=== PATIENT | male | born 1970 | race Caucasian/White ===

== ENCOUNTER 2016-10-16 10:51 | Emergency (ER) | payer MEDICAID, OTHER ==
[~2016-10-16] VITALS: Ht 188 cm; Wt 85.0 kg
[2016-10-16 11:23] VITALS: BP 117/73
== END 2016-10-16 11:24 | disposition home or self-care (01) ==
LOC: ED 10:54
DX: L03.211 Cellulitis of face (principal); K02.9 Dental caries, unspecified; F17.210 Nicotine dependence, cigarettes, uncomplicated
CPT/HCPCS: 99282; 99283

== ENCOUNTER 2016-12-01 11:32 | Emergency (ER) | payer OTHER ==
[~2016-12-01] VITALS: Ht 188 cm; Wt 84.3 kg
[~2016-12-01 11:32] MED LIST: ACHYD1T PO; CLIN-79 PO; NO HOME MEDICATIONS; TRM50T PO
--- OUTSIDE RECORDS SUMMARY | 2016-12-01 11:36 | XMS REPORT | Continuity of Care Document ---
Author Author [facility] Address Unknown Phone Unavailable Care Team Providers Care Electrical Solderer Name Role Phone FRIEND, NASH Magana DO PCP [phone] Insurance Providers Payer Name Policy Number Subscriber Name Relationship Self Pay Marie Montaño 19 Self / Same As Patient Advance Directives Directive Response Recorded Date/Time Advanced Directives No 10/16/16 11:00am Chief Complaint and Reason for Visit Chief Complaint Dental Complaint Reason for Visit Cellulitis of cheek Dental caries Problems Active Problems Medical Problem Onset Date Status Cellulitis Unknown Resolved Cellulitis of cheek Unknown Acute Dental caries Unknown Acute Laceration of finger ~12/12/2014 Acute Strain of back muscle ~02/05/2014 Resolved Swelling, cheek Unknown Resolved Medications Current Home Medications Medication Dose Units Route Directions Days/Qty Instructions Start Date No Home Medications 0 As Directed 02/05/14 Clindamycin Hcl 300 Mg 300 Mg ORAL Three Times A Day 30 10/16/16 Past Home Medications Medication Directions Ordered Status Acetaminophen/Hydrocodone Bitart 1 Ea Tab, 1 Tab Oral Every 6 Hours as needed for Pain 07/15/14 Discontinued Tramadol Hcl (Ultram) 50 Mg Tablet, 1-2 Tab Oral Every 6 Hours as needed for Pain 12/12/14 Discontinued Social History Query Response Start Date Stop Date Smoking Status Current every day smoker Hospital Discharge Instructions No hospital discharge instructions. Plan of Care Discharge Date 10/16/16 11:24am Disposition 01 HOME OR SELF-CARE Condition at Discharge Stable Instructions/Education Provided Clindamycin (Systemic) Cellulitis (Skin Infection), Adult (DC) Prescriptions See Medication Section Referrals FRIEND,NASH N DO - Additional Instructions/Education Follow up with the primary care, dentist, or ER if worsening of facial swelling. Take the antibiotic as directed. Continue ibuprofen 800mg three times daily for inflammation and pain. I encourage you to see a dentist for oral care. Some of your test results may not be complete prior to your leaving the Emergency Department. The Emergency Department is not authorized to give test results over the phone. Please contact the doctor's office listed in this packet of information for your final results. Follow up with your primary care physician or return to the Emergency Department for worsening or worrisome symptoms. * Emergency Department phone number: [phone], x [phone]* MEDICAL RECORD If you need copies of your X-rays, call [phone]. If you need copies of your medical record, including lab results, a signed authorization for release of records will be required. A telephone call for release of Health Information is not allowed. BILLING Billing can sometimes be confusing and frustrating. To help avoid confusion in the future, please take a moment to acquaint yourself with the billing parties for services. SERVICE BILLING [facility] [employer] Emergency Room Services [facility] Physician Services [facility] X-rays [facility] Patients will receive bills for services from the appropriate provider. If you have any questions about your [facility] bill, our staff will be happy to assist you. Please call [phone], and ask for the billing department. THANK YOU for choosing [facility] as your emergency care provider! Care Plan and Goals ~~Discharge Care Plan~~ Problem: Fractured tooth, abscess, or dental caries Goal: Decreased pain. Dental repair/extraction is completed by dentist. Instructions: Practice good oral hygiene. Take medications as prescribed. Follow up with your dentist as directed. Functional Status No functional status results. Allergies, Adverse Reactions, Alerts Allergen Type Severity Reaction Status Last Updated Amoxicillin Allergy Unknown Active 10/16/16 Immunizations No immunization records. Vital Signs Acute Vital Signs Vital Response Date/Time Temperature (Fahrenheit) 97.5 10/16/2016 11:23am Pulse 87 bpm 10/16/2016 11:23am Respirations 17 10/16/2016 11:23am Height 6 ft 2 in Weight 187 lb Body Mass Index 24.0 kg/m^2 Results No known relevant diagnostic tests, laboratory data and/or discharge summary. Procedures No known history of procedures. Encounters Encounter Location Arrival/Admit Date Discharge/Depart Date Attending Provider Departed Emergency Room [facility] 10/16/16 10:54am 10/16/16 11: 24am WYATT SALDANA MD Recent Diagnosis
[2016-12-01] MEDS ORDERED: KETOROLAC 30 MG/ML (TORADOL) 1 ML VIAL IV ONE (11:50)
[2016-12-01] MEDS ORDERED: SODIUM CHLORIDE FLUSH 10 ML SYR IV PRN (11:50)
[2016-12-01] MEDS ORDERED: SODIUM CHLORIDE FLUSH 3 ML SYR IV ONE (11:50)
[2016-12-01 12:10] LABS: BASOPHILS % (AUTO) 0 % (0-2); EOSINOPHILS # (AUTO) 0.1 10^3uL; EOSINOPHILS % (AUTO) 1 % (0-4); LYMPHOCYTES # (AUTO) 1.8 X10^3; MEAN CORPUSCULAR HEMOGLOBIN 29.3 PG (26.0-34.0); MEAN CORPUSCULAR VOLUME 84 FL (80-100); MEAN PLATELET VOLUME 10.2 FL (6.0-9.5); MONOCYTES # (AUTO) 0.6 X10^3; MONOCYTES % (AUTO) 8 % (3-11); NEUTROPHILS # (AUTO) 4.6 X10^3; NEUTROPHILS % (AUTO) 65 % (51-67); PLATELET COUNT 188 10^3uL (150-450)
[2016-12-01 12:22] LABS: ALBUMIN 4.9 g/dL (3.4-5.0); ALKALINE PHOSPHATASE 78 U/L (38-126); ANION GAP 16.5 MEQ/L (3-15); BUN/CREATININE RATIO 13 (10-20); CALCULATED IONIZED CALCIUM 3.8 mg/dL (3.8-4.6); CREATINE KINASE 116 U/L (55-170); TOTAL PROTEIN 9.2 g/dL (6.4-8.5)
[2016-12-01 12:25] LABS: BILIRUBIN,URINE Negative (Negative); CLARITY,URINE Clear; COLOR,URINE Yellow; GLUCOSE, URINE (UA) Negative (Negative); LEUKOCYTE ESTERASE ,URINE Negative (Negative); PH,URINE 6.5 (5.0 - 8.0); UROBILINOGEN,URINE 0.2 mg/dL (0.2-1.0)
--- NOTE | 2016-12-01 12:38 | NUR ---
Reported to Dr. Gutierrez that reported, "It took about 1-2 minutes to get him to open his eyes, his eyes were rolling around in his head. We got him up to the chair and it still took a couple of minutes to get him to fully arouse." Patient reported, "right before I passed out I could feel it coming on that I was going to pass out. My heart started beating fast, I was light headed and sweaty,next thing I know I woke up with people around me and they told me I blacked out." reported that he had hit the back of his head on the cabinet. Patient went to bed after this happened.
[2016-12-01 12:41] LABS: AMPHETAMINE SCREEN, URINE Negative (Negative); CANNABINOID SCREEN, URINE Positive (Negative); METHAMPHETAMINE SCREEN URINE S NEGATIVE (NEGATIVE); OPIATE SCREEN URINE Negative (Negative); PROPOXYPHENE STAT NEGATIVE (NEGATIVE)
--- NOTE | 2016-12-01 13:16 | Diagnostic Imaging Report ---
PROCEDURE: CT lumbar spine without contrast. TECHNIQUE: Multiple contiguous axial images were obtained through the lumbar spine without the use of intravenous contrast. Sagittal and coronal reformations were then performed. INDICATION: Back pain There is normal height and alignment of the lumbar vertebral bodies. Disc spaces are well-maintained. No disc herniation or bony stenosis is seen at any level. No significant degenerative disc and facet disease is seen. There is no mass. There is no acute bony abnormality. IMPRESSION: No significant abnormality is seen. Dictated by: Dictated on workstation # [id number]
--- NOTE | 2016-12-01 13:16 | Diagnostic Imaging Report ---
INDICATION: Chest pain EXAMINATION: PA and lateral views of the chest. FINDINGS: The heart size and vascularity are normal. Lungs are clear. There is no effusion. There is no acute bony abnormality. IMPRESSION: No acute abnormality is seen. Dictated by: Dictated on workstation # [id number]
--- NOTE | 2016-12-01 13:17 | Diagnostic Imaging Report ---
PROCEDURE: CT head without contrast. TECHNIQUE: Multiple contiguous axial images were obtained through the brain without the use of intravenous contrast. INDICATION: Headache. FINDINGS: The ventricles are normal in size, shape, and position. There is no acute parenchymal hemorrhage, edema, or mass. There is no extra-axial mass or hemorrhage. There is no bony abnormality. IMPRESSION: Normal CT of the head. Dictated by: Dictated on workstation # [id number]
--- NOTE | 2016-12-01 14:02 | Diagnostic Imaging Report ---
PROCEDURE: CT angiography of the chest with contrast. TECHNIQUE: Multiple contiguous axial images were obtained through the chest after uneventful bolus administration of intravenous contrast. Reconstructed CTA MIP acquisitions were also performed. INDICATION: Smoker. Elevated D-dimer. Short of air. FINDINGS: There is a 1 cm noncalcified nodule at the right lung base. There is slight parenchymal distortion at the margins of this mass. The remainder of the lungs are clear. There is no effusion or pneumothorax. There is no mediastinal mass or hemorrhage. There is no aortic dissection. There is no pulmonary embolus. IMPRESSION: 1. There is no pulmonary embolus or aortic dissection. 2. There is a 1 cm noncalcified nodule in the right lower lobe. This could be evaluated further with PET scan as neoplasm is in the differential. This could be followed for stability. This could be biopsied if this fails to clear. Dictated by: Dictated on workstation # [id number]
[2016-12-01] MEDS ORDERED: TRM50T PO (14:31)
[2016-12-01 16:29] VITALS: BP 110/70
== END 2016-12-01 15:10 | disposition home or self-care (01) ==
LOC: ED 11:33
DX: R55 Syncope and collapse (principal); R91.1 Solitary pulmonary nodule; S30.0XXA Contusion of lower back and pelvis, initial encounter; W18.39XA Other fall on same level, initial encounter; Y93.9 Activity, unspecified; Y92.009 Unspecified place in unspecified non-institutional (private) residence as the place of occurrence of the external cause; F17.210 Nicotine dependence, cigarettes, uncomplicated
CPT/HCPCS: 36415; 70450; 71020; 71275; 72131; 80053; 80307; 80320; 81003; 82550; 82553; 84443; 84484; 85025; 85379; 86140; 93005; 96361; 96374; 99285; J1885; J7030; Q9967; 93010